=== PATIENT | male | born 2000 | race Caucasian/White ===

== ENCOUNTER 2020-09-28 12:40 | Day surgery (SDC) | payer BC ==
[~2020-09-28] VITALS: Ht 170.2 cm; Wt 99.0 kg
--- NOTE | ~2020-09-28 | OR ---
[facility] [address], [place] [address] Draft DATE OF OPERATION: 09/28/2020 SURGEON: Sofy Antonio MD PREOPERATIVE DIAGNOSES: 1. History of gastroesophageal reflux. 2. Abnormally high voice quality, uncertain etiology. POSTOPERATIVE DIAGNOSES: Antral gastritis, no evidence of esophagitis, no evidence of hiatal hernia. PROCEDURE: Esophagogastroduodenoscopy with biopsy. ANESTHESIA: Intravenous sedation, fentanyl 100 mcg and Versed 6 mg. INDICATIONS: This 20-year-old white man is a patient currently of [facility], ANTONIETTA Henry. The patient has graduated from the [employer] and continues to work on a master's degree as well. He is known to me from 2014, at which time he underwent upper endoscopy for what was thought to be reflux related voice problems. In hindsight, it is less likely. He does have a very high-pitched voice, not unlike that of a female. He has been taking Nexium for reflux symptom control. He is here to undergo upper endoscopy to better characterize his current problem understand the risks of bleeding, infection, and perforation. FINDINGS: Esophagus was normal. He had a reasonably good flap valve, which was able to be retroflex view using the endoscope. He absolutely had antral gastritis, but no sign of ulceration. The duodenum was normal. CLOtest was negative 20 minutes post procedure. DESCRIPTION OF PROCEDURE: The patient was brought to the endoscopy suite, given topical lidocaine hypopharyngeal anesthesia, placed in lateral decubitus position given intravenous sedation to the point of slurred speech and nystagmus with full cardiopulmonary monitoring. A bite block was placed. An Olympus video upper endoscope was passed into the hypopharynx. The vocal cords appeared normal, specifically the true vocal cords. The scope was easily advanced into the esophagus. Throughout its length, it was normal. Scope was passed to the PATIENT NAME: TAYA SANTO OPERATIVE REPORT DATE OF : [birth year] REPORT #: [id number] PHYSICIAN: SOFY ANTONIO MD PCP: KARMEN ELISE REPORT IS CONFIDENTIAL AND NOT TO BE RELEASED WITHOUT AUTHORIZATION [facility] [address], [place] [address] Draft stomach, which was insufflated with air. Rugal folds were normal. Antrum had an appearance of chronic inflammatory change, no sign of ulceration or erosion. Pylorus was normal. Scope was passed through into the duodenum, which was normal. Biopsies were obtained there to assess for celiac disease. The scope was withdrawn. A biopsy was then taken of the antrum for both MIRIAN and pathologic testing. Retroflex view was undertaken, showing no sign of hiatal hernia per Se. With retroflexed position, the flap valve could be afforded, however. The scope was straightened and withdrawn and biopsies taken of the distal normal-appearing esophagus. Further withdrawal up for biopsies in mid esophagus, which was also normal in appearance. The scope was removed, and the patient was taken to the recovery room in good condition. CONCLUDING DIAGNOSIS: No clear evidence of esophagitis and flap valve reasonably intact. Antrum with chronic inflammatory change, no sign of ulceration. PLAN: If he is getting benefit from Nexium clinically, it is reasonable to take. We will review his pathology reports. CLOtest thus far is negative. He shows no sign of H pylori on that basis. We will see him back in the office in a month or so. I will review his findings. Additionally, we will be interested to review and see if he has had hormonal evaluation, particularly the testosterone level. It may not impact on his voice quality. MD QIANA Ramos/CONSUELO /[id number] cc: ANTONIETTA Henry Stephanie Jacobo Family Copies: ~ PATIENT NAME: TAYA SANTO OPERATIVE REPORT DATE OF : [birth year] REPORT #: [id number] PHYSICIAN: SOFY ANTONIO MD PCP: KARMEN ELISE REPORT IS CONFIDENTIAL AND NOT TO BE RELEASED WITHOUT AUTHORIZATION
[~2020-09-28 12:40] MED LIST: CELEXA20 MG PO; CIPRO500 MG PO; GLUCOPHAGE500 MG; IBU800 MG PO; LEVOFLOXACIN750 MG PO; PRILOSEC20 MG PO; SKIN TREATMENT400 GM; VIAGRA50 MG; VITAMIN D21250 MCG PO; ZYRTEC10 MG PO
--- NOTE | 2020-09-28 14:30 | NUR ---
09/28/20 1429 Mag Gabriel 1423- PT ARRIVES TO PACU ALERT AND ORIENTED. PT REPORTS NO PAIN OR NAUSEA. RESP EVEN AND UNLABORED. OXYGEN SAT HIGH 90'S TO 100% ON 2L VIA NC. 1426- OXYGEN TITRATED OFF.
--- NOTE | 2020-09-29 17:07 | PATH ---
[facility] [address], [place] [address] Signed SPECIMEN(S): A DUODENAL BIOPSY SPECIMEN(S): B ANTRUM SPECIMEN(S): C DISTAL ESOPHAGUS SPECIMEN(S): D MID ESOPHAGUS SPECIMEN SOURCE: A. DUODENAL BIOPSY B. ANTRUM C. DISTAL ESOPHAGUS D. MID ESOPHAGUS CLINICAL HISTORY: GERD, abnormal voice. Postop Diagnosis: Antral gastritis. MICROSCOPIC DESCRIPTION: Histologic sections of all submitted blocks are examined by light microscopy. These findings, together with the gross examination, support the pathologic diagnosis. FINAL PATHOLOGIC DIAGNOSIS: A. Duodenum, biopsy: - Duodenal mucosa with no histopathologic abnormality. - Negative for increased intraepithelial lymphocytes. - Negative for dysplasia or malignancy. B. Stomach, antrum, biopsy: - Antral/oxyntic mucosa with focal mucosal erosion and mild chronic, inactive gastritis. - Negative for Helicobacter organisms on HE stain. - Negative for dysplasia or malignancy. C. Esophagus, distal, biopsy: - Squamous mucosa with chronic inflammation and reactive epithelial changes, consistent with reflux esophagitis. - Negative for intestinal metaplasia, dysplasia or malignancy. D. Esophagus, mid, biopsy: - Squamous mucosa with minimal chronic inflammation and reactive epithelial changes. - Negative for intestinal metaplasia, dysplasia or malignancy. NAL:caw:C2NR GROSS DESCRIPTION: Four specimens are received in four containers, labeled "TP." A. The specimen, labeled "TP, 1," and designated on the requisition PATIENT NAME: TAYA SANTO PATHOLOGY DATE OF : [birth year] REPORT #: [id number] PHYSICIAN: DUY PATHOLOGY PCP: KARMEN ELISE REPORT IS CONFIDENTIAL AND NOT TO BE RELEASED WITHOUT AUTHORIZATION [facility] [address], [place] [address] Signed "duodenal," is received in formalin and consists of two weaver soft tissue fragments that measure 0.3-0.4 cm in greatest dimension. The specimen is entirely submitted in cassette (A1). B. The specimen, labeled "TP, 2," and designated on the requisition "antrum," is received in formalin and consists of four weaver soft tissue fragments that measure 0.2-0.3 cm in greatest dimension. The specimen is entirely submitted in cassette (B1). C. The specimen, labeled "TP, 3," and designated on the requisition "distal esophagus," is received in formalin and consists of two weaver soft tissue fragments that measure 0.3 cm in greatest dimension. The specimen is entirely submitted in cassette (C1). D. The specimen, labeled "TP, 4," and designated on the requisition "mid esophagus," is received in formalin and consists of two thin, weaver soft tissue fragments that measure 0.2-0.3 cm in greatest dimension. The specimen is entirely submitted in cassette (D1). AT (under the direct supervision of a pathologist) The Gross Description was prepared using a voice recognition system. The report was reviewed for accuracy; however, sound-alike word errors, addition and/or deletions may occur. If there is any question about this report, please contact Client Services. PERFORMING LABORATORY: The technical component was performed by [facility], [address] [place] [id number] ([employer]ing [employer] Operator: Charity Thao MD; CLIA# [id number]). [facility], [address] [place] [address] [place] [address] (IA# [id number]). Diagnostician: Tiana Lisa MD Pathologist Electronically Signed 09/29/2020 Copies: ~ PATIENT NAME: TAYA SANTO MAMIE PATHOLOGY DATE OF : [birth year] REPORT #: [id number] PHYSICIAN: DUY TRIPLETT PCP: KARMEN ELISE REPORT IS CONFIDENTIAL AND NOT TO BE RELEASED WITHOUT AUTHORIZATION
== END 2020-09-28 15:05 | disposition home or self-care (01) ==
LOC: OPS 12:40 → DS 12:40 → OPS 14:00 → DS 14:00 → OPS 15:05
PROVIDERS: ATTEND Surgery
PROC: 0DB78ZX Excision of Stomach, Pylorus, Via Natural or Artificial Opening Endoscopic, Diagnostic (ICD-10-PCS; 2020-09-28)
PROC: 0DB28ZX Excision of Middle Esophagus, Via Natural or Artificial Opening Endoscopic, Diagnostic (ICD-10-PCS; 2020-09-28)
PROC: 0DB38ZX Excision of Lower Esophagus, Via Natural or Artificial Opening Endoscopic, Diagnostic (ICD-10-PCS; 2020-09-28)
PROC: 0DB98ZX Excision of Duodenum, Via Natural or Artificial Opening Endoscopic, Diagnostic (ICD-10-PCS; principal; 2020-09-28 14:00)
DX: K21.00 Gastro-esophageal reflux disease with esophagitis, without bleeding (principal); K25.9 Gastric ulcer, unspecified as acute or chronic, without hemorrhage or perforation; F32.9 Major depressive disorder, single episode, unspecified; R62.50 Unspecified lack of expected normal physiological development in childhood; F41.9 Anxiety disorder, unspecified; Z79.84 Long term (current) use of oral hypoglycemic drugs; Z79.899 Other long term (current) drug therapy
CPT/HCPCS: 99153; G0500; J2250; J3010; J7121

== ENCOUNTER 2022-07-18 01:55 | Emergency (ER) | payer OTHER, BC ==
[~2022-07-18] VITALS: Ht 170.2 cm; Wt 103.5 kg
[2022-07-18] MEDS ORDERED: BUPROPION XL300 MG PO (02:32)
[2022-07-18] MEDS ORDERED: OMEPRAZOLE40 MG PO (02:32)
[2022-07-18] MEDS ORDERED: OZEMPIC0.25 MG/0. SUB-Q (02:32)
[2022-07-18] MEDS ORDERED: CAPLYTA42 MG PO (02:32)
[2022-07-18] MEDS ORDERED: CITALOPRAM HBR20 MG PO (02:33)
[2022-07-18] MEDS ORDERED: ONDANSETRON ODT8 MG PO (03:30)
== END 2022-07-18 03:56 | disposition home or self-care (01) ==
LOC: ED 01:55
DX: R10.13 Epigastric pain (principal); Z79.899 Other long term (current) drug therapy
CPT/HCPCS: 36415; 80053; 81001; 82150; 85025; 96374; 99284-25; A9270; J2405

== ENCOUNTER 2022-08-23 10:40 | Day surgery (SDC) | payer OTHER, BC ==
[~2022-08-23] VITALS: Ht 170.2 cm; Wt 99.1 kg
[~2022-08-23 10:40] MED LIST changes: +ALPRAZOLAM0.5 MG PO; +BUPROPION XL300 MG PO; +CAPLYTA42 MG PO; +CITALOPRAM HBR20 MG PO; +IBUPROFEN800 MG PO; +OMEPRAZOLE40 MG PO; +ONDANSETRON ODT8 MG PO; +OZEMPIC0.25 MG/0. SUB-Q
--- NOTE | 2022-08-23 14:39 | NUR ---
08/23/22 1439 Rachel Obrien 1431 PT ARRIVED TO PACU ON 2L VIA NC, PT TALKING TO RN AND DENIES CONCERNS AND PAIN AND NAUSEA. PLAN OF CARE DISCUSSED.
--- NOTE | 2022-08-25 13:21 | OR ---
[facility] [address], [place] [address] Signed DATE OF OPERATION: 08/23/2022 SURGEON: Sofy Antonio MD PREOPERATIVE DIAGNOSES: 1. Longstanding gastroesophageal reflux; weak and low volume voice. 2. Recent epigastric pain. POSTOPERATIVE DIAGNOSES: 1. Moderately severe gastritis body of stomach. 2. Small hiatal hernia. Mild chronic distal esophagitis. PROCEDURE: Esophagogastroduodenoscopy with biopsy surgeon. ANESTHESIA: Intravenous sedation; fentanyl 100 mcg, Versed 6 mg. INDICATION: This 22-year-old white man is known to me since his teens. He has had longstanding reflux for which he was taking PPI medication. He is most notably noted to have an extremely weak voice, which at one time was thought possibly related to reflux, but later thought quite unlikely to be so. He has gone to college and now is out of college showing a master's degree and continues to take omeprazole. He has had episodes of epigastric pain, possibly substernal burning pain as well. On that basis, upper endoscopy is anticipated to assess for the source of the problem and to confirm or refute the possibility this represents esophagitis. The risks of bleeding, infection, perforation, and so forth were reviewed with him, he understands wished to proceed. FINDINGS: There is mild distal esophagitis, but no sign of Cano's epithelium, stricture, neoplasm or severe inflammatory change. There was a small hiatal hernia on retroflexed view. More notable was moderately severe gastritis of the body of the stomach. CLOtest was negative 20 minutes post procedure. The duodenum was normal. DESCRIPTION OF PROCEDURE: The patient was brought to the endoscopy suite, given topical lidocaine hypopharyngeal anesthesia. Full cardiopulmonary monitoring was maintained. A bite block was placed. In the left lateral decubitus position, the Olympus video upper endoscope was passed in Electronically Signed By: SOFY ANTONIO MD 08/25/22 1321 PATIENT NAME: TAYA SANTO OPERATIVE REPORT DATE OF : [birth year] REPORT #: [id number] PHYSICIAN: SOFY ANTONIO MD PCP: EBONI JANE MD REPORT IS CONFIDENTIAL AND NOT TO BE RELEASED WITHOUT AUTHORIZATION [facility] [address], [place] [address] Signed the hypopharynx. The vocal cords were visualized thoroughly including the posterior aspects showing no sign of inflammatory change, chronic inflammation, nodule, or other issue. The scope was advanced to the esophagus without problem throughout its length it was normal. The distal portion showed a very small amount of mild chronic distal esophagitis. There was no Cano's epithelium or stricture. The scope was advanced to the stomach, which was insufflated with air. Rugal folds were notable for moderately severe gastritis dominantly in the body of the stomach. The antrum was not particularly problematic in its appearance. The pylorus was normal. Scope was passed through into the duodenum, which was normal. Biopsies were taken of the second and bulbar portions. The scope was withdrawn and retroflexed view was undertaken showing a relatively small hiatal hernia. The midbody of the stomach was quite inflamed. Biopsies were obtained. There was no sign of ulceration or neoplasm. CLOtest biopsies were taken as well. The scope was straightened withdrawn and biopsies then taken of the distal esophagus and ultimately the mid esophagus. Scope was removed. The patient was taken to the recovery room in good condition . It is reasonably probable that his more recent epigastric pain is related to significant gastritis rather than esophagitis. a plan of therapy to include Carafate 1 g p.o. q.i.d. on an empty stomach as well as continued use of PPI medication. He will see us back in four weeks. We will review his findings. MD QIANA Ramos/SUBHASHL /[id number] cc: Eboni Jane MD Copies: ~ Electronically Signed By: SOFY ANTONIO MD 08/25/22 1321 PATIENT NAME: TAYA SANTO OPERATIVE REPORT DATE OF : [birth year] REPORT #: [id number] PHYSICIAN: SOFY ANTONIO MD PCP: EBONI JANE MD REPORT IS CONFIDENTIAL AND NOT TO BE RELEASED WITHOUT AUTHORIZATION
--- NOTE | 2022-08-25 16:58 | PATH ---
[facility] [address], [place] [address] Signed SPECIMEN(S): A DUODENAL BIOPSY SPECIMEN(S): B STOMACH BODY BIOPSY SPECIMEN(S): C DISTAL ESOPHAGEAL BIOPSY SPECIMEN(S): D MID ESOPHAGEAL BIOPSY SPECIMEN SOURCE: A. DUODENAL BIOPSY B. STOMACH BODY BIOPSY C. DISTAL ESOPHAGEAL BIOPSY D. MID ESOPHAGEAL BIOPSY CLINICAL HISTORY: Pre: GERD. Post: Moderate gastritis FINAL PATHOLOGIC DIAGNOSIS: A. Duodenum, biopsy: - Duodenal mucosa with no significant pathologic changes. B. Stomach, body, biopsy: - Gastric oxyntic mucosa with no significant pathologic changes. - Negative for Helicobacter pylori with HE stains. C. Esophagus, distal, biopsy: - Esophageal squamous mucosa with no significant pathologic changes. D. Esophagus, mid, biopsy: - Esophageal squamous mucosa with no significant pathologic changes. BRP:em:C2NR MICROSCOPIC EXAMINATION: Histologic sections of all submitted blocks are examined by light microscopy. These findings, together with the gross examination, support the pathologic diagnosis. GROSS DESCRIPTION: Four specimens are received in four containers, labeled "TP." A. The specimen, labeled "TP, 1," and designated on the requisition "duodenum biopsy," is received in formalin and consists of two weaver soft tissue fragments that measure 0.2 and 0.5 cm in greatest dimension. The specimen is entirely submitted in cassette (A1). B. The specimen, labeled "TP, 2," and designated on the requisition "stomach body biopsy," is received in formalin and consists of multiple weaver soft tissue fragments that measure less than 0.1 to 0.6 cm in greatest dimension. The specimen is entirely submitted in cassette (B1). PATIENT NAME: TAYA SANTO PATHOLOGY DATE OF : [birth year] REPORT #: [id number] PHYSICIAN: DUY TRIPLETT PCP: DAFNE HERNANDEZ MD REPORT IS CONFIDENTIAL AND NOT TO BE RELEASED WITHOUT AUTHORIZATION [facility] [address] [place], [place] [address] Signed C. The specimen, labeled "TP, 3," and designated on the requisition "distal esophagus biopsy," is received in formalin and consists of multiple weaver-white soft tissue fragments that measure less than 0.1 up to 0.6 cm in greatest dimension. The specimen is entirely submitted in cassette (C1). D. The specimen, labeled "TP, 4," and designated on the requisition "mid esophagus biopsy," is received in formalin and consists of one elongated, weaver-white soft tissue fragment that measures 0.9 cm in greatest dimension. The specimen is entirely submitted in cassette (D1). AI (under the direct supervision of a pathologist) The Gross Description was prepared using a voice recognition system. The report was reviewed for accuracy; however, sound-alike word errors, addition and/or deletions may occur. If there is any question about this report, please contact Client Services. PERFORMING LABORATORY: The technical component was performed by [facility], [address] [place] [address] (CLIA# [id number]). Professional interpretation was performed by [facility], [address] [place] [address] (CLIA# [id number]). Diagnostician: Mark Joseph MD Pathologist Electronically Signed 08/25/2022 Copies: ~ PATIENT NAME: TAYA SANTO MAMIE PATHOLOGY DATE OF : [birth year] REPORT #: [id number] PHYSICIAN: DUY TRIPLETT PCP: DAFNE HERNANDEZ MD REPORT IS CONFIDENTIAL AND NOT TO BE RELEASED WITHOUT AUTHORIZATION
== END 2022-08-23 15:10 | disposition home or self-care (01) ==
LOC: OPS 10:40 → DS 10:40 → OPS 12:00
PROVIDERS: ATTEND Surgery
PROC: 0DB68ZX Excision of Stomach, Via Natural or Artificial Opening Endoscopic, Diagnostic (ICD-10-PCS; principal; 2022-08-23 12:00)
DX: K21.00 Gastro-esophageal reflux disease with esophagitis, without bleeding (principal); K44.9 Diaphragmatic hernia without obstruction or gangrene; K29.70 Gastritis, unspecified, without bleeding; F32.9 Major depressive disorder, single episode, unspecified
CPT/HCPCS: 99153; G0500; J2250; J3010; J7121